=== PATIENT | female | born 1990 | race American Indian/Alaskan Native ===

== ENCOUNTER 2019-09-26 06:53 | Emergency (ER) | payer SELFPAY ==
[2019-09-26 07:19] VITALS: BP 96/60
--- NOTE | 2019-09-26 08:00 | Emergency Department Report ---
- General Chief Complaint: Upper Respiratory Infection Stated Complaint: FEVER,PAIN,NAUSEA Time Seen by Provider: 09/26/19 07:55 Source: patient Mode of arrival: Ambulatory Limitations: No Limitations - History of Present Illness Initial Comments: 28 year old -Filipino female presents to the emergency room complaining of sore throat, body aches, cough, headache, nausea, vomiting and diarrhea 4 days. Patient states she's been taken Tylenol and aspirin last dose 12 AM. Patient denies getting a flu vaccine. She has an allergy to Levaquin and citrus foods. Patient denies any fever. MD Complaint: cough, sore throat, rhinorrhea, nasal congestion, sinus pain Onset/Timin -: days(s) Severity scale (0 -10): 10 Quality: sharp, stabbing Consistency: constant Improves With: nothing Worsens With: nothing Associated Symptoms: headache, rhinorrhea, nasal congestion, sore throat, cough, nausea, vomiting, diarrhea Treatments Prior to Arrival: none - Related Data Previous Rx's Medication Instructions Recorded Last Taken Type cephALEXin [Keflex] 500 mg PO Q12HR #20 cap 09/26/19 Unknown Rx Allergies Allergy/AdvReac Type Severity Reaction Status Date / Time Story And Derivatives Allergy Vomiting Verified 09/26/19 07:14 levofloxacin [From Levaquin] Allergy Rash Verified 09/26/19 07:14 ED Review of Systems ROS: Stated complaint: FEVER,PAIN,NAUSEA Other details as noted in HPI Comment: All other systems reviewed and negative ED Past Medical Hx - Past Medical History Previous Medical History?: Yes - Surgical History Past Surgical History?: Yes Additional Surgical History: x 2 - Social History Smoking Status: Current Every Day Smoker Substance Use Type: Other - Medications Home Medications: Home Medications Medication Instructions Recorded Confirmed Last Taken Type cephALEXin [Keflex] 500 mg PO Q12HR #20 cap 09/26/19 Unknown Rx ED Physical Exam - General Limitations: No Limitations General appearance: alert, in no apparent distress - Head Head exam: Present: atraumatic, normocephalic - Expanded Head Exam Expanded Head exam: Present: general tenderness (maxillary and frontal) - Eye Eye exam: Present: normal appearance - ENT ENT exam: Present: normal orophraynx, mucous membranes moist, TM's normal bilaterally - Neck Neck exam: Present: tenderness, full ROM, lymphadenopathy - Respiratory Respiratory exam: Present: normal lung sounds bilaterally. Absent: respiratory distress - Cardiovascular Cardiovascular Exam: Present: regular rate, normal rhythm. Absent: systolic murmur, diastolic murmur, rubs, gallop - GI/Abdominal GI/Abdominal exam: Present: soft, normal bowel sounds - Neurological Exam Neurological exam: Present: alert, oriented X3 - Psychiatric Psychiatric exam: Present: normal affect, normal mood - Skin Skin exam: Present: warm, dry, intact, normal color. Absent: rash ED Course Vital Signs 09/26/19 07:14 Temperature 98.4 F Pulse Rate 75 Respiratory 18 Rate Blood Pressure 96/60 O2 Sat by Pulse 100 Oximetry ED Medical Decision Making - Medical Decision Making 28 year old -Filipino female presents to the emergency room complaining of sore throat, body aches, cough, headache, nausea, vomiting and diarrhea 4 days. Patient states she's been taken Tylenol and aspirin last dose 12 AM. Pat ap denies getting a flu vaccine. She has an allergy to Levaquin and citrus foods. Patient denies any fever. Patient will be treated for sinusitis with Keflex. Patient is to follow-up with her primary care provider if her symptoms persist or gets worse Critical care attestation.: If time is entered above; I have spent that time in minutes in the direct care of this critically ill patient, excluding procedure time. ED Disposition Clinical Impression: Sinusitis, acute Qualifiers: Sinusitis location: frontal Recurrence: non-recurrent Qualified Code(s): J01.10 - Acute frontal sinusitis, unspecified Disposition: - TO HOME OR SELFCARE Is pt being admited?: No Does the pt Need Aspirin: No Condition: Stable Instructions: Sinusitis (ED) Additional Instructions: Complete her antibiotics as prescribed. Increase her fluid intake. Try taking [id number] Zyrtec or Claritin. You can try using Flonase [id number] Prescriptions: cephALEXin [Keflex] 500 mg PO Q12HR #20 cap Referrals: PRIMARY CARE, [Primary Care Provider] - 3-5 Days Forms: Work/School Release Form(ED)
== END 2019-09-26 08:20 | disposition home or self-care (01) ==
LOC: ED 06:53
DX: J01.90 Acute sinusitis, unspecified (principal); F17.200 Nicotine dependence, unspecified, uncomplicated; Z91.018 Allergy to other foods; Z88.1 Allergy status to other antibiotic agents

== ENCOUNTER 2019-12-20 09:09 | Emergency (ER) | payer SELFPAY ==
[2019-12-20 11:18] LABS: Basophils % (Auto) 0.9 % (0.0-1.8); Eosinophils # (Auto) 0.1 K/mm3 (0.0-0.4); Eosinophils % (Auto) 1.7 % (0.0-4.3); Hematocrit 33.1 % (30.3-42.9); Hemoglobin 10.8 gm/dl (10.1-14.3); Lymphocytes # (Auto) 1.7 K/mm3 (1.2-5.4); Lymphocytes % (Auto) 38.6 % (13.4-35.0); Mean Corpuscular HGB Conc 33 % (30-34); Mean Corpuscular Volume 78 fl (79-97); Monocytes # (Auto) 0.3 K/mm3 (0.0-0.8); Platelet Count 242 K/mm3 (140-440); Red Blood Count 4.27 M/mm3 (3.65-5.03); Red Cell Distribution Width 18.5 % (13.2-15.2)
[2019-12-20 11:21] LABS: Bilirubin,Urine NEG (Negative); Blood,Urine NEG (Negative); Color,Urine Yellow (Yellow); Mucus,Urine FEW /HPF; Protein,Urine <15 mg/dL mg/dL (Negative); Urobilinogen,Urine < 2.0 mg/dL (<2.0)
[2019-12-20 11:35] LABS: Alanine Aminotransferase 27 units/L (7-56); Albumin 4.3 g/dL (3.9-5); BUN/Creatinine Ratio 15; Blood Urea Nitrogen 9 mg/dL (7-17); Calcium 8.7 mg/dL (8.4-10.2); Hemolysis Index 9
[2019-12-20 14:00] VITALS: BP 124/81
[2019-12-20] MEDS ORDERED: ONDANSETRON 4 MG/2 ML INJ IV ONE (14:49)
[2019-12-20] MEDS ORDERED: SODIUM CHLORIDE 0.9% 1000 ML 1,000 ML IV ONE (14:49)
[2019-12-20] MEDS ORDERED: MORPHINE 4 MG/1 ML INJ IV ONE (14:49)
[2019-12-20 14:52] LABS: HCG Qualitative,Urine Negative (Negative)
--- NOTE | 2019-12-20 15:45 | Emergency Department Report ---
ED Abdominal Pain HPI - General Chief Complaint: Abdominal Pain Stated Complaint: ABD PAIN, COUGHING UP BLOOD Time Seen by Provider: 12/20/19 14:03 Source: patient Mode of arrival: Ambulatory Limitations: No Limitations - History of Present Illness Initial Comments: This is a 29-year-old female nontoxic, well nourished in appearance, no acute signs of distress presents to the ED with c/o of nausea and vomiting and abdominal pain 2 days. Patient describes vomiting as food content and yellow gastric acid. Patient describes abdominal pain as cramping and aching with level of 8/10 diffuse. Patient denies chest pain, short of breath, fever, chills, headache, stiff neck, numbness or tingling. Patient denies any diarrhea or constipation. Patient denies any recent travels. Patient denies any allergies. PMH includes hital hernia. MD Complaint: abdominal pain -: days(s) (3) Location: diffuse Radiation: none Migration to: no migration Severity: mild Severity scale (0 -10): 8 Quality: cramping, aching Consistency: constant Improves With: nothing Worsens With: nothing Associated Symptoms: nausea, vomiting. denies: diarrhea, fever, chills, c onstipation, dysuria, hematemesis, hematochezia, melena, hematuria, anorexia, syncope - Related Data Previous Rx's Medication Instructions Recorded Last Taken Type cephALEXin [Keflex] 500 mg PO Q12HR #20 cap 09/26/19 Unknown Rx Ondansetron [Zofran Odt] 4 mg PO Q8HR PRN #20 tab.rapdis 12/20/19 Unknown Rx Allergies Allergy/AdvReac Type Severity Reaction Status Date / Time [place] And Derivatives Allergy Vomiting Verified 09/26/19 07:14 levofloxacin [From Levaquin] Allergy Rash Verified 09/26/19 07:14 ED Review of Systems ROS: Stated complaint: ABD PAIN, COUGHING UP BLOOD Other details as noted in HPI Constitutional: denies: chills, fever Eyes: denies: eye pain, eye discharge, vision change ENT: denies: ear pain, throat pain Respiratory: denies: cough, shortness of breath, wheezing Cardiovascular: denies: chest pain, palpitations Endocrine: no symptoms reported Gastrointestinal: abdominal pain, nausea, vomiting. denies: diarrhea Genitourinary: denies: urgency, dysuria, discharge Musculoskeletal: denies: back pain, joint swelling, arthralgia Skin: denies: rash, lesions Neurological: denies: headache, weakness, paresthesias Psychiatric: denies: anxiety, depression Hematological/Lymphatic: denies: easy bleeding, easy bruising ED Past Medical Hx - Past Medical History Previous Medical History?: Yes Additional medical history: hiatal hernia - Surgical History Past Surgical History?: Yes Additional Surgical History: x 2, Tubaligation - Social History Smoking Status: Current Every Day Smoker Substance Use Type: Non Opiate Pain - Medications Home Medications: Home Medications Medication Instructions Recorded Confirmed Last Taken Type cephALEXin [Keflex] 500 mg PO Q12HR #20 cap 09/26/19 Unknown Rx Ondansetron [Zofran Odt] 4 mg PO Q8HR PRN #20 tab.rapdis 12/20/19 Unknown Rx ED Physical Exam - General Limitations: No Limitations General appearance: alert, in no apparent distress - Head Head exam: Present: atraumatic, normocephalic - Eye Eye exam: Present: normal appearance - Neck Neck exam: Present: normal inspection, full ROM. Absent: tenderness, meningismus, lymphadenopathy - Respiratory Respiratory exam: Present: normal lung sounds bilaterally. Absent: respiratory distress, wheezes, rales, rhonchi, stridor, chest wall tenderness, accessory muscle use, decreased breath sounds, prolonged expiratory - Cardiovascular Cardiovascular Exam: Present: regular rate, normal rhythm, normal heart sounds. Absent: bradycardia, tachycardia, irregular rhythm, systolic murmur, diastolic murmur, rubs, gallop - GI/Abdominal GI/Abdominal exam: Present: soft, tenderness (diffuse), normal bowel sounds, hernia (No gangrene and is reducible.). Absent: distended, guarding, rebound, rigid, diminished bowel sounds - Extremities Exam Extremities exam: Present: normal inspection, full ROM, normal capillary refill. Absent: tenderness - Back Exam Back exam: Present: normal inspection, full ROM. Absent: tenderness, CVA tenderness (R), CVA tenderness (L), muscle spasm, paraspinal tenderness, vertebral tenderness, rash noted - Neurological Exam Neurological exam: Present: alert, oriented X3, normal gait - Psychiatric Psychiatric exam: Present: normal affect, normal mood - Skin Skin exam: Present: warm, dry, intact, normal color. Absent: rash ED Course Vital Signs 12/20/19 09:14 Temperature 98.6 F Pulse Rate 64 Respiratory 18 Rate Blood Pressure 124/81 O2 Sat by Pulse 100 Oximetry - Reevaluation(s) Reevaluation #1: 12/20/19 15:47 Patient is speaking in full sentences with no signs of distress noted. ED Medical Decision Making - Lab Data Result diagrams: 12/20/19 10:55 12/20/19 10:55 - Medical Decision Making This is a 29-year-old female that presents with abdominal pain with n/v. Patient is stable and was examined by me. Negative signs of symptoms of appendicitis. Labs obtained. UA obtained. CT of abdomen obtained and dictated by the radiologist. Patient is notified of the report with no questions noted by the patient. Vital signs are stable prior to discharge. Patient received medical treatment in the ED which patient stated symptoms has resovled and subsided. Was instructed note to operate any machinery due to possible drowsiness and stated someone will drive the patient home. A by mouth challenge has been obtained and patient tolerated well with no nausea vomiting. Patient was notified of strict precatuions of appendictis symptoms and to return to the ED if symptoms occurs as soon as possible. Patient was also instructed to Follow-up with a primary care doctor in 3-5 days or if symptoms worsen and continue return to emergency room as soon as possible. At time of discharge, the patient does not seem toxic or ill in appearance. No acute signs of distress noted. Patient agrees to discharge treatment plan of care. No further questions noted by the patient. Critical care attestation.: If time is entered above; I have spent that time in minutes in the direct care of this critically ill patient, excluding procedure time. ED Disposition Clinical Impression: Abdominal pain Qualifiers: Abdominal location: generalized Qualified Code(s): R10.84 - Generalized abdominal pain Nausea & vomiting Qualifiers: Vomiting type: unspecified Vomiting Intractability: non-intractable Qualified Code(s): R11.2 - Nausea with vomiting, unspecified Disposition: DC-01 TO HOME OR SELFCARE Is pt being admited?: No Does the pt Need Aspirin: No Condition: Stable Instructions: Abdominal Pain (ED), Acute Nausea and Vomiting (ED) Additional Instructions: Follow-up with a primary care and lumber bearer doctor in 3-5 days or if symptoms worsen and continue return to emergency room as soon as possible. Prescriptions: Ondansetron [Zofran Odt] 4 mg PO Q8HR PRN #20 tab.rapdis PRN Reason: Nausea Referrals: PRIMARY CAREMD [Primary Care Provider] - 3-5 Days CHUYITA HOWARD MD [Staff Physician] - 3-5 Days [facility] [Outside] - 3-5 Days [facility] [Provider Group] - 3-5 Days Forms: Work/School Release Form(ED)
--- NOTE | 2019-12-20 16:08 | Cat Scan Report ---
CT ABDOMEN AND PELVIS WITH CONTRAST INDICATION / CLINICAL INFORMATION: abd pain. Negative test. TECHNIQUE: Axial CT images were obtained through the abdomen and pelvis after 100 mL Omnipaque [address] scans at this location are performed using CT dose reduction for ALARA by means of automated exposure control. COMPARISON: None available. FINDINGS: LOWER CHEST: No significant abnormality. LIVER: Heterogeneous appearance of the liver with periportal edema possibly related to IV hydration. GALLBLADDER: No significant abnormality. BILE DUCTS: No significant abnormality. PANCREAS: No significant abnormality. SPLEEN: No significant abnormality. ADRENALS: No significant abnormality. RIGHT KIDNEY and URETER: No significant abnormality. LEFT KIDNEY and URETER: No significant abnormality. STOMACH and SMALL BOWEL: No significant abnormality. COLON: No significant abnormality. APPENDIX: No significant abnormality. PERITONEUM: Trace free fluid in the pelvis. No free air. No fluid collection. LYMPH NODES: No significant adenopathy. AORTA and ARTERIES: No significant abnormality. IVC and VEINS: No significant abnormality. URINARY BLADDER: No significant abnormality. REPRODUCTIVE ORGANS: Bilateral tubal ligation clips. 3.8 cm mildly complex right adnexal cyst. ADDITIONAL FINDINGS: None. SKELETAL SYSTEM: No significant abnormality. IMPRESSION: 1. 3.8 cm mildly complex right adnexal cyst with trace free fluid in the pelvis. A follow-up ultrasou nd pelvis in 6 weeks may be helpful for further evaluation. Signer Name: Ruben Russo MD Signed: 12/20/2019 4:04 PM Workstation Name: [id number]
== END 2019-12-20 18:14 | disposition home or self-care (01) ==
LOC: ED 09:09
DX: R10.84 Generalized abdominal pain (principal); R11.2 Nausea with vomiting, unspecified; F17.200 Nicotine dependence, unspecified, uncomplicated; Z98.51 Tubal ligation status; Z88.8 Allergy status to other drugs, medicaments and biological substances; Z79.899 Other long term (current) drug therapy; Z98.890 Other specified postprocedural states; Z87.19 Personal history of other diseases of the digestive system
CPT/HCPCS: 36415; 74177; 80053; 81001; 81025; 85025; 96361; 96374; 96375; 99284; J2270; J2405; J7030; Q9967

== ENCOUNTER 2020-10-03 09:47 | Emergency (ER) | payer SELFPAY ==
[2020-10-03] MEDS ORDERED: IBUPROFEN 600 MG TAB PO ONE (11:18)
[2020-10-03] MEDS ORDERED: DIPHtheria,PERTUSSIS(ACELL),TETANUS VACCINE/PF 0.5 ML VIAL IM ONE ×2 (13:18→16:45)
--- NOTE | 2020-10-03 13:18 | Event Note ---
ED Screening Note ED Screening Note: states she cut her right thumb that occurred this morning at 3 AM states it was cut by the metal piece of the window no glass, no glass broke tdap unsure PMHx hiatal allergy: levaquin LNMP: 08/18/2020, tubal ligation This initial assessment/diagnostic orders/clinical plan/treatment(s) is/are subject to change based on patients health status, clinical progression and re- assessment by fellow clinical providers in the ED. Further treatment and workup at subsequent clinical providers discretion. Patient/guardian urged not to elope from the ED as their condition may be serious if not clinically assessed and managed. Initial orders include: tdap ACC eval
--- NOTE | 2020-10-03 16:42 | Emergency Department Report ---
- General Chief Complaint: Wound/Laceration Stated Complaint: LFT THUMB INJURY/PAIN Time Seen by Provider: 10/03/20 13:16 Source: patient Mode of arrival: Ambulatory Limitations: No Limitations - History of Present Illness Initial Comments: Chief complaint: Thumb laceration HPI: This is a healthy 29-year-old female waxvn-yqxd-[id number] who presents with left thumb laceration. A house window fell onto her left thumb. Sharp metal piece cut the left thumb. She had mild bleeding. She has intact range of motion. No paresthesias. No numbness. No other injury. Patient unknown tetanus status. Injury occurred 3 AM this morning. -: Sudden, This morning Location: other (Left thumb) Extremity Location: Left: Hand (Left thumb) Place: home Patient Tetanus UTD: No Context: accidental Associated Symptoms: none Treatments Prior to Arrival: bandage - Related Data Previous Rx's Medication Instructions Recorded Last Taken Type cephALEXin [Keflex] 500 mg PO Q12HR #20 cap 09/26/19 Unknown Rx Ondansetron [Zofran Odt] 4 mg PO Q8HR PRN #20 tab.rapdis 12/20/19 Unknown Rx HYDROcodone/APAP 5-325 [[place] 1 each PO Q6HR PRN #7 tablet 03/22/20 Unknown Rx 5/325] Ondansetron [Zofran ODT TAB] 8 mg PO Q8HR #20 tab.rapdis 03/22/20 Unknown Rx Pantoprazole [Protonix] 40 mg PO QDAY #30 tablet 03/22/20 Unknown Rx Prednisone [predniSONE 10 mg 10 mg PO .TAPER #1 tab.ds.pk 03/22/20 Unknown Rx (6-Day Pack, 21 Tabs)] Allergies Allergy/AdvReac Type Severity Reaction Status Date / Time [place] And Derivatives Allergy Vomiting Verified 09/26/19 07:14 levofloxacin [From Levaquin] Allergy Rash Verified 09/26/19 07:14 ED Review of Systems ROS: Stated complaint: LFT THUMB INJURY/PAIN Other details as noted in HPI Constitutional: denies: fever, malaise Respiratory: denies: cough, shortness of breath Cardiovascular: denies: as per HPI Skin: lesions. denies: change in color, change in hair/nails ED Past Medical Hx - Past Medical History Previous Medical History?: Yes Additional medical history: hiatal hernia - Surgical History Past Surgical History?: No Additional Surgical History: x 2, Tubaligation - Social History Smoking Status: Current Every Day Smoker (1-2 cigarettes daily) Substance Use Type: None (Denies illicit drug use) - Medications Home Medications: Home Medications Medication Instructions Recorded Confirmed Last Taken Type cephALEXin [Keflex] 500 mg PO Q12HR #20 cap 09/26/19 Unknown Rx Ondansetron [Zofran Odt] 4 mg PO Q8HR PRN #20 tab.rapdis 12/20/19 Unknown Rx HYDROcodone/APAP 5-325 [[place]air 1 each PO Q6HR PRN #7 tablet 03/22/20 Unknown Rx 5/325] Ondansetron [Zofran ODT TAB] 8 mg PO Q8HR #20 tab.rapdis 03/22/20 Unknown Rx Pantoprazole [Protonix] 40 mg PO QDAY #30 tablet 03/22/20 Unknown Rx Prednisone [predniSONE 10 mg 10 mg PO .TAPER #1 tab.ds.pk 03/22/20 Unknown Rx (6-Day Pack, 21 Tabs)] ED Physical Exam - General Limitations: No Limitations General appearance: alert, in no apparent distress - Head Head exam: Present: atraumatic, normocephalic - Eye Eye exam: Present: normal appearance - Neck Neck exam: Present: normal inspection, full ROM - Respiratory Respiratory exam: Absent: respiratory distress - Expanded Upper Extremity Exam Left Hand Wrist exam: Present: laceration (V-shaped 2 cm laceration at the volar aspect of the proximal phalanx left thumb superficial laceration with appearance of a V-shaped skin avulsion) ED Course Vital Signs 10/03/20 11:21 Temperature 98.0 F Pulse Rate 66 Respiratory 20 Rate Blood Pressure 161/84 [Right] O2 Sat by Pulse 99 Oximetry - Laceration /Wound Repair Left Anterior Volar Finger Wound Location: upper extremity (Left thumb) Wound's Depth, Shape: superficial Wound Explored: clean Irrigated w/ Saline (ccs): 0 (I supervised patient washing wound with soapy water.) Betadine Prep?: No Wound Debrided: minimal Wound Repaired With: Dermabond (3 layers of Dermabond tissue adhesive) Sterile Dressing Applied?: Yes (I applied a Band-Aid) ED Medical Decision Making - Medical Decision Making Superficial thumb laceration repaired with tissue adhesive. Patient full range of motion at the IP MCP. No indication of nerve or tendon injury. Patient was provided Tdap booster in emergency department. She was given extensive verbal and written wound instructions. She understands to return for signs of infection. Critical care attestation.: If time is entered above; I have spent that time in minutes in the direct care of this critically ill patient, excluding procedure time. ED Disposition Clinical Impression: Thumb laceration Disposition: DC-01 TO HOME OR SELFCARE Is pt being admited?: No Does the pt Need Aspirin: No Condition: Stable Instructions: Tissue Adhesive Wound Care, Ribu-ey-Fura Forms: Work/School Release Form(ED)
[2020-10-03 16:54] VITALS: BP 131/61
== END 2020-10-03 16:59 | disposition home or self-care (01) ==
LOC: ED 09:47
DX: S61.012A Laceration without foreign body of left thumb without damage to nail, initial encounter (principal); F17.200 Nicotine dependence, unspecified, uncomplicated; Z79.899 Other long term (current) drug therapy; Z98.890 Other specified postprocedural states; Z98.51 Tubal ligation status; Z88.8 Allergy status to other drugs, medicaments and biological substances; W45.8XXA Other foreign body or object entering through skin, initial encounter; Y93.89 Activity, other specified; Y92.009 Unspecified place in unspecified non-institutional (private) residence as the place of occurrence of the external cause; Y99.8 Other external cause status
CPT/HCPCS: 90471; 90715

== ENCOUNTER 2021-04-09 08:55 | Emergency (ER) | payer SELFPAY | END 2021-04-09 09:30 | disposition left against medical advice (07) | LOC: ED 08:55 | DX: N93.9 Abnormal uterine and vaginal bleeding, unspecified (principal); Z53.21 Procedure and treatment not carried out due to patient leaving prior to being seen by health care provider ==

== ENCOUNTER 2021-04-29 13:35 | Emergency (ER) | payer SELFPAY ==
[2021-04-29 13:58] VITALS: BP 105/66
[2021-04-29 15:41] LABS: Bilirubin,Urine NEG (Negative); Blood,Urine NEG (Negative); Color,Urine Yellow (Yellow); Mucus,Urine FEW /HPF; Urobilinogen,Urine < 2.0 mg/dL (<2.0)
[2021-04-29 15:49] LABS: HCG Qualitative,Urine Negative (Negative)
--- NOTE | 2021-04-29 16:40 | Emergency Department Report ---
ED Female HPI - General Chief complaint: Abdominal Pain Stated complaint: ABD PAIN/VAG PAIN Time Seen by Provider: 04/29/21 16:11 Source: patient Mode of arrival: Ambulatory Limitations: No Limitations - History of Present Illness Initial comments: Chief complaint: "It is an inferno down there." HPI: This is a 30-year-old female with history of hiatal hernia otherwise healthy presents with 3 to 4 weeks vaginal burning. She has irritation. She denies discharge. She denies abdominal pain. Denies fever. She has intercourse with barrier protection. She used multiple [id number] therapies without success. MD Complaint: other (Burning sensation of vaginal region for 3 to 4 weeks) -: week(s) (3 to 4 weeks) Location: labia Severity: moderate Quality: burning Consistency: constant Improves with: none Worsens with: none Are you Now?: No Associated Symptoms: denies other symptoms - Related Data Previous Rx's Medication Instructions Recorded Last Taken Type cephALEXin [Keflex] 500 mg PO Q12HR #20 cap 09/26/19 Unknown Rx Ondansetron [Zofran Odt] 4 mg PO Q8HR PRN #20 tab.rapdis 12/20/19 Unknown Rx HYDROcodone/APAP 5-325 [[place] 1 each PO Q6HR PRN #7 tablet 03/22/20 Unknown Rx 5/325] Ondansetron [Zofran ODT TAB] 8 mg PO Q8HR #20 tab.rapdis 03/22/20 Unknown Rx Pantoprazole [Protonix] 40 mg PO QDAY #30 tablet 03/22/20 Unknown Rx Prednisone [predniSONE 10 mg 10 mg PO .TAPER #1 tab.ds.pk 03/22/20 Unknown Rx (6-Day Pack, 21 Tabs)] Fluconazole [Diflucan TAB] 200 mg PO ONCE #1 tablet 04/29/21 Unknown Rx Miconazole/Cleanser 17 On Wipe 1 each VG ONCE #1 kit 04/29/21 Unknown Rx [Monistat 7 Combination Pack] metroNIDAZOLE [Flagyl TAB] 500 mg PO Q12HR 7 Days #14 tab 04/29/21 Unknown Rx Allergies Allergy/AdvReac Type Severity Reaction Status Date / Time [place] And Derivatives Allergy Vomiting Verified 09/26/19 07:14 levofloxacin [From Levaquin] Allergy Rash Verified 11/23/19 07:14 ED Review of Systems ROS: Stated complaint: ABD PAIN/VAG PAIN Other details as noted in HPI Comment: All other systems reviewed and negative Constitutional: denies: fever, malaise Cardiovascular: denies: chest pain, dyspnea on exertion Gastrointestinal: denies: abdominal pain, nausea, vomiting Genitourinary: dyspareunia. denies: urgency, dysuria, frequency, hematuria, discharge, abnormal menses ED Past Medical Hx - Past Medical History Previous Medical History?: Yes Additional medical history: hiatal hernia - Surgical History Past Surgical History?: Yes Additional Surgical History: x 2, Tubaligation - Social History Smoking Status: Current Every Day Smoker Substance Use Type: None - Medications Home Medications: Home Medications Medication Instructions Recorded Confirmed Last Taken Type cephALEXin [Keflex] 500 mg PO Q12HR #20 cap 09/26/19 Unknown Rx Ondansetron [Zofran Odt] 4 mg PO Q8HR PRN #20 tab.rapdis 12/20/19 Unknown Rx HYDROcodone/APAP 5-325 [[place] 1 each PO Q6HR PRN #7 tablet 03/22/20 Unknown Rx 5/325] Ondansetron [Zofran ODT TAB] 8 mg PO Q8HR #20 tab.rapdis 03/22/20 Unknown Rx Pantoprazole [Protonix] 40 mg PO QDAY #30 tablet 03/22/20 Unknown Rx Prednisone [predniSONE 10 mg 10 mg PO .TAPER #1 tab.ds.pk 03/22/20 Unknown Rx (6-Day Pack, 21 Tabs)] Fluconazole [Diflucan TAB] 200 mg PO ONCE #1 tablet 04/29/21 Unknown Rx Miconazole/Cleanser 17 On Wipe 1 each VG ONCE #1 kit 04/29/21 Unknown Rx [Monistat 7 Combination Pack] metroNIDAZOLE [Flagyl TAB] 500 mg PO Q12HR 7 Days #14 tab 04/29/21 Unknown Rx ED Physical Exam - General Limitations: No Limitations General appearance: alert, in no apparent distress, other (Patient appears well appears comfortable sitting crosslegged upright in bed) - Head Head exam: Present: atraumatic, normocephalic - Eye Eye exam: Present: normal appearance - ENT ENT exam: Present: mucous membranes moist - Neck Neck exam: Present: normal inspection, full ROM - Respiratory Respiratory exam: Present: normal lung sounds bilaterally. Absent: respiratory distress, wheezes, rales, rhonchi, stridor, chest wall tenderness - Cardiovascular Cardiovascular Exam: Present: regular rate, normal rhythm, normal heart sounds. Absent: systolic murmur, diastolic murmur, rubs, gallop - GI/Abdominal GI/Abdominal exam: Present: soft, normal bowel sounds. Absent: distended, tenderness, guarding, rebound - Extremities Exam Extremities exam: Present: normal inspection - Neurological Exam Neurological exam: Present: alert, oriented X3 - Psychiatric Psychiatric exam: Present: normal affect, normal mood - Skin Skin exam: Present: warm, dry, intact, normal color. Absent: rash ED Course Vital Signs 04/29/21 13:57 Temperature 98.5 F Pulse Rate 58 L Respiratory 18 Rate Blood Pressure 105/66 [Right] O2 Sat by Pulse 100 Oximetry ED Medical Decision Making - Medical Decision Making Vaginitis: Candidal versus bacterial vaginosis, patient denies discharge abdominal pain or pelvic pain. I do not suspect PID from clinical presentation. Prescribed metronidazole tablets, fluconazole tablet and Monistat cream Critical care attestation.: If time is entered above; I have spent that time in minutes in the direct care of this critically ill patient, excluding procedure time. ED Disposition Clinical Impression: Candidal vaginitis, Bacterial vaginosis Disposition: - TO HOME OR SELFCARE Is pt being admited?: No Does the pt Need Aspirin: No Condition: Stable Instructions: Abdominal Pain (ED), Bacterial Vaginosis, [id number], Bacterial Vaginosis (ED), Vaginal Yeast Infection, Adult Prescriptions: Fluconazole [Diflucan TAB] 200 mg PO ONCE #1 tablet metroNIDAZOLE [Flagyl TAB] 500 mg PO Q12HR 7 Days #14 tab Miconazole/Cleanser 17 On Wipe [Monistat 7 Combination Pack] 1 each VG ONCE #1 kit Referrals: NYLA PISANO MD [Staff Physician] - as needed
== END 2021-04-29 16:47 | disposition home or self-care (01) ==
LOC: ED 13:35
DX: B37.3 Candidiasis of vulva and vagina (principal); N76.0 Acute vaginitis; B96.89 Other specified bacterial agents as the cause of diseases classified elsewhere; F17.200 Nicotine dependence, unspecified, uncomplicated; Z98.51 Tubal ligation status; Z98.890 Other specified postprocedural states; Z91.018 Allergy to other foods; Z79.899 Other long term (current) drug therapy; Z88.1 Allergy status to other antibiotic agents
CPT/HCPCS: 81001; 81025; 99283

== ENCOUNTER 2022-01-27 07:02 | Emergency (ER) | payer SELFPAY ==
[2022-01-27 07:08] VITALS: BP 139/71
== END 2022-01-27 08:00 | disposition left against medical advice (07) ==
LOC: ED 07:02
DX: R51.9 Headache, unspecified (principal); Z53.21 Procedure and treatment not carried out due to patient leaving prior to being seen by health care provider